=== PATIENT | male | born 2000 | race African-American/Black ===

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

== ENCOUNTER 2021-05-31 11:16 | Emergency (ER) | payer OTHER ==
[2021-05-31 11:25] VITALS: BP 121/78; PULSE 67; TEMP 98.6; BMI 19.8
[2021-05-31] MEDS ORDERED: FLUORESCEIN NA 1 EA STRIP ONE ×2 (13:09→13:11)
== END 2021-05-31 13:40 | disposition home or self-care (01) ==
LOC: JERFT 11:16 → JER 11:16 → JERFT 13:40
DX: H57.11 Ocular pain, right eye (principal); H53.9 Unspecified visual disturbance
CPT/HCPCS: 99283-25

== ENCOUNTER 2023-07-15 23:26 | Emergency (ER) | payer OTHER ==
[2023-07-15 23:36] VITALS: BP 118/77; PULSE 57; RESP 18; TEMP 98; BMI 19.0
[2023-07-16] MEDS ORDERED: ACETAMINOPHEN 1000 MG/100 ML BAG IVPB ONE (00:06)
[2023-07-16] MEDS ORDERED: METOCLOPRAMIDE HCL INJECTION 10 MG/2 ML VIAL IVPUSH ONE (00:06)
[2023-07-16] MEDS ORDERED: METOCLOPRAMIDE HCL INJECTION 10 MG/2 ML VIAL ONE (00:10)
[2023-07-16] MEDS ORDERED: ACETAMINOPHEN INJECTION 100 ML IVPB ONE (00:10)
[2023-07-16] MEDS ORDERED: LACTATED RINGERS SOLUTION 1,000 ML/1,000 ML INFUS.BAG IV SCH (00:15)
== END 2023-07-16 01:20 | disposition home or self-care (01) ==
LOC: JER 23:26
PROC: 3E033NZ Introduction of Analgesics, Hypnotics, Sedatives into Peripheral Vein, Percutaneous Approach (ICD-10-PCS; principal; 2023-07-16)
PROC: 3E033GC Introduction of Other Therapeutic Substance into Peripheral Vein, Percutaneous Approach (ICD-10-PCS; 2023-07-16)
DX: R51.9 Headache, unspecified (principal); H53.149 Visual discomfort, unspecified
CPT/HCPCS: 99284-25